=== PATIENT | male | born 1980 | race Caucasian/White ===

== ENCOUNTER 2022-04-11 10:37 | Emergency (ER) | payer SELFPAY ==
[2022-04-11] VITALS (14 sets, daily range): BP systolic 104–139; BP diastolic 53–101
[~2022-04-11] VITALS: Ht 175.3 cm; Wt 77.0 kg
[2022-04-11 11:20] LABS: HEMOGLOBIN 15.3 g/dl (14.0-18.0); IMMATURE GRANULOCYTES 0.1 % (0.0-5.0); MEAN CORPUSCULAR HGB 30.6 pG CALC (26.0-32.0); MEAN CORPUSCULAR HGB CONC 34.8 g/dL CAL (32.0-36.0); NEUT# 10.71 thou/uL (1.82-7.42); RED CELL DISTRI WIDTH 12.1 % (11.5-15.5)
[2022-04-11 11:28] LABS: ALKALINE PHOSPHATASE 131 u/l (38-126); ANION GAP 15 (6-22 (CALC)); BILIRUBIN, TOTAL 0.6 mg/dL (0.0-1.4); BUN 15 mg/dL (9-20); BUN/CREATININE RATIO 15 (12-20 (CALC)); CARBON DIOXIDE 19 mmol/l (22-30); CHLORIDE 108 mmol/l (95-108); GFR FOR AFR.AMER. > 60 ML/MIN (>=60 (CALC)); GFR OTHER RACES > 60 ML/MIN (>=60 (CALC)); LIPASE 69 u/l (23-300); SGOT/AST 29 u/l (17-59); SODIUM 138 mmol/l (137-146); TOTAL PROTEIN 8.7 g/dL (6.3-8.2)
[2022-04-11] MEDS ORDERED: ZOFRAN4 MG/TAB PO (13:33)
== END 2022-04-11 13:48 | disposition home or self-care (01) | DRG 392 ==
LOC: ED 10:37
PROVIDERS: Family Medicine
DX: R10.84 Generalized abdominal pain (principal)